=== PATIENT | female | born 1975 | race Caucasian/White ===

== ENCOUNTER 2022-09-30 20:13 | Emergency (ER) | payer OTHER ==
[2022-09-30] MEDS ORDERED: Sodium Chloride 0.9% 1,000 ML IV ONE (21:15)
[2022-09-30] MEDS ORDERED: Metoclopramide 10 MG/2 ML SDV IVPUSH ONE (21:15)
[2022-09-30] MEDS ORDERED: SUMAtriptan 6 MG/0.5 ML SDV SUBCUT ONE (21:22)
[2022-09-30 21:37] LABS: ESTIMATED GFR 111 mL/min (>60)
== END 2022-09-30 23:15 | disposition home or self-care (01) ==
LOC: JD.ED 20:13
DX: R11.11 Vomiting without nausea (principal)
CPT/HCPCS: 36415; 80053; 85025; 86140; 96361; 96372; 96374; 99284; J2765; J3030; J7030; 99283